=== PATIENT | male | born 1945 ===

== ENCOUNTER 2021-03-15 11:34 | Inpatient (IN) | payer OTHER, MEDICARE ==
[2021-03-15 20:47] LABS: Glucose,Whole Blood 111 mg/dL (75-99)
[2021-03-15] MEDS ORDERED: ONDANSETRON 4 MG/2 ML VIAL IVP PRN (21:48)
[2021-03-15] MEDS ORDERED: NALOXONE 0.4 MG/ML 1 ML VIAL IV PRN (21:48)
[2021-03-15] MEDS ORDERED: ACETAMINOPHEN TAB 325 MG TAB PO PRN (21:48)
--- NOTE | 2021-03-15 22:52 | P.HPIM ---
History of Present Illness H&P Date: 03/15/21 Chief Complaint: transferred for HD 76 year old male with hypertension , ESRD on HD TTS patient transferred to our facility from [facility] for HD. he went there due to increase confusion and wandering around the neighborhood looking confused and lost. his called EMS and took him to hospital hoping for improvement or placement as she does not feel she is able to take care of him anymore. and he is not safe alone around the house. patient unable to provide any meaningful history as he is pleasantly confused , telling war stories and stories about pirates. chart review showed that he has become increasingly confused over time, med list is not provided. computer showing only hydralazin. its not clear when he started HD, it seems to be recent as he is getting HD through left permacath report of acting out dreams and vivid dreams. and reliving the [place] war with history of PTSD no report about infection like symptoms , fever, chills, GI bleeding , chest pain or trouble breathing it seems that he has been leaving the house when he is alone (when is not home) and wandering around the neighborhood, confused and lost. this time requesting placement patient transferred to our facility for HD labs reviewed. CT head, no acute pathology CT abd showed moderate B/L pleural effusion , unruptured infrarenal aortic aneurysm 6 X5.6 cm COVID negative Review of Systems ROS unobtainable: due to mental status Past Medical History Past Medical History: Myocardial Infarction ([place]), Renal Disease, Skin Disorder, Thyroid Disorder Additional Past Medical History / Comment(s): Heart attack with stents, Last Myocardial Infarction Date:: unknown History of Any Multi-Drug Resistant Organisms: None Reported Past Surgical History: Heart Catheterization With Stent Date of Last Stent Placement:: unknown Smoking Status: Former smoker Past Alcohol Use History: None Reported Past Drug Use History: None Reported - Past Family History family Family Medical History: Unable to Obtain Medications and Allergies Home Medications Medication Instructions Recorded Confirmed Type Renaplex-D Tablet 1 tab PO DAILY 03/15/21 03/15/21 History hydrALAZINE HCL 25 mg PO TID 03/15/21 03/15/21 History Allergies Allergy/AdvReac Type Severity Reaction Status Date / Time lorazepam [From Ativan] AdvReac Agitation Verified 03/15/21 20:09 Physical Exam Vitals: Vital Signs Temp Pulse Resp BP Pulse Ox 03/15/21 19:52 98.4 F 70 17 190/90 97 Intake and Output 03/15/21 03/15/21 03/15/21 06:59 14:59 22:59 Other: Weight 96.026 kg Constitutional: No acute distress, conversant, pleasant, pleasantly confused Eyes: Anicteric sclerae, moist conjunctiva, Pupils equal round reactive to light ENMT: NC/AT Oropharynx clear, no erythema, or exudates Neck: Supple, FROM, no masses, or JVD No carotid bruits No thyromegaly Lungs: Clear to auscultation Clear to percussion Normal respiratory effort, no accessory muscle use Cardiovascular: Heart regular in rate and rhythm, systolic murmurs, no gallops, or rubs No peripheral edema Abdominal: Soft Nontender, no guarding, rebound or rigidity Abdomen moving with respiration Normoactive bowel sounds No hepatomegaly, No splenomegaly No palpable mass No abdominal wall hernia noted Skin: left side of chest with permacath for HD, otherwise Normal temperature, tone, texture, turgor No induration No subcutaneous nodules No rash, lesions No ulcers Extremities: No digital cyanosis No clubbing Pedal pulses intact and symmetrical Radial pulses intact and symmetrical No calf tenderness Psychiatric: Alert and oriented to nothing, he believes he is a chief of a [employer], or [employer], he thinks himself in different places Neuro he can not follow instructions for proper exam, keeps showing me how strong he is , grabbing my hands and squeezing, I could not perform proper neuro exam , but he is observed walking independantly using a cane , and able to sit and get up off the chair with minimal assistance. 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 an alternative would be high dose of melatonin up to 12 mg QHS from patient history PTSD is also suggested patient also having high blood pressure readings I recommend starting the patient on Prazosin 2 mg QHS which will help with PTSD and better blood pressure control , I would avoid taking it in the morning due to postural hypotension effect, the dose can be up titrated weekly to control his symptoms as long as his blood pressure can tolerate Fall precautions social welfare administrator evaluation for possible placement PT eval for possible placement ESRD on hemodiallysis consult nephrology renall diet follow HD schedule TTS, last session was Monday 2 days ago hypertension , uncontrolled resume hydralazin anemia of chronic disease, with macrocytosis no report of active bleeding monitor Hgb check vit b12, and folic acid hypokalemia , mild K 3.2 continue to monitor nephrology to correct during HD session in AM history reported thyroid disease, there is no levothyroxin in his meds list TSH and free T4 are within normal limits CT abd showed moderate B/L pleural effusion , unruptured infrarenal aortic aneurysm 6 X5.6 cm vascular surgery consult full code heparin sc tid for DVT PPX anticipated length of stay < 2 midnights anticipated discharge to SNF
[2021-03-15] MEDS: clonazePAM 0.5 MG TAB PO SCH (22:58)
[2021-03-15] MEDS: HEPARIN SODIUM,PORCINE/PF 5,000 UNIT/0.5 ML SYRINGE SQ SCH (22:58)
[2021-03-15] MEDS: PRAZOSIN 1 MG CAP PO SCH (22:58)
[2021-03-15] MEDS: hydrALAZINE HCL 25 MG TAB PO SCH (22:58)
[2021-03-16 06:55] LABS: Glucose,Whole Blood 88 mg/dL (75-99)
--- NOTE | 2021-03-16 07:30 | XR ---
EXAMINATION TYPE: XR chest 1V DATE OF EXAM: 03/16/2021 COMPARISON: None INDICATION: ECF placement TECHNIQUE: Single frontal view of the chest is obtained. FINDINGS: The heart size is normal. The pulmonary vasculature is slightly prominent. Mild diffuse increased lung markings are present. Correlate for volume overload. Catheter enters on the left the tip in the distal superior vena cava region. Electronic device overli es the right chest. IMPRESSION: 1. There may be some early volume overload present. Clinical correlation recommended.
[2021-03-16] MEDS: hydrALAZINE HCL 25 MG TAB PO SCH ×3 (08:44→20:03)
[2021-03-16] MEDS: HEPARIN SODIUM,PORCINE/PF 5,000 UNIT/0.5 ML SYRINGE SQ SCH ×2 (08:44→16:34)
--- NOTE | 2021-03-16 09:27 | P.PN ---
Subjective Progress Note Date: 03/16/21 HPI: 76 year old male with hypertension , ESRD on HD TTS patient transferred to our facility from [facility] for HD. he went there due to increase confusion and wandering around the neighborhood looking confused and lost. his called EMS and took him to hospital hoping for improvement or placement as she does not feel she is able to take care of him anymore. and he is not safe alone around the house. patient unable to provide any meaningful history as he is pleasantly confused , telling war stories and stories about pirates. chart review showed that he has become increasingly confused over time, med list is not provided. computer showing only hydralazin. its not clear when he started HD, it seems to be recent as he is getting HD through left permacath report of acting out dreams and vivid dreams. and reliving the [place] war with history of PTSD no report about infection like symptoms , fever, chills, GI bleeding , chest pain or trouble breathing it seems that he has been leaving the house when he is alone (when is not home) and wandering around the neighborhood, confused and lost. this time requesting placement patient transferred to our facility for HD labs reviewed. CT head, no acute pathology CT abd showed moderate B/L pleural effusion , unruptured infrarenal aortic aneurysm 6 X5.6 cm COVID negative 03/16/2021 Remains confused and poor historian. Sitter at bedside Objective - Vital Signs Vital signs: Vital Signs Temp 98.0 F 03/16/21 08:00 Pulse 99 03/16/21 08:00 Resp 18 03/16/21 08:00 BP 155/73 03/16/21 08:00 Pulse Ox 90 L 03/16/21 08:00 Intake & Output 03/15/21 03/16/21 03/16/21 18:59 06:59 18:59 Weight 96.026 kg Other: # Voids 2 - Exam Constitutional: No acute distress, conversant, confused Eyes: Anicteric sclerae, moist conjunctiva, Pupils equal round reactive to light ENMT: NC/AT Neck: Supple, FROM, no masses, or JVD No carotid bruits No thyromegaly Lungs: Clear to auscultation Clear to percussion Normal respiratory effort, no accessory muscle use Cardiovascular: Heart regular in rate and rhythm, systolic murmurs, no gallops, or rubs No peripheral edema Abdominal: Soft Nontender Skin: left side of chest with permacath for HD Extremities: No CCE Psychiatric: Alert , confused - Labs Labs: Abnormal Lab Results - Last 24 Hours (Table) 03/15/21 Range/Units 20:45 POC Glucose (mg/dL) 111 H (75-99) mg/dL Assessment and Plan Plan: progressive increase in confusion with suspected dementia with behavioral changes From reviewing medical records 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, this usually associated with synucleinopathies (neurodegenerative disease) which commonly progresses to dementia with lewy bodies, Parkinson disease, or Alzheimer over the years consider OP neurology referral for neurodegenerative disease Was started on Clonazepam at low dose of 0.5 mg QHS from patient history PTSD is also suggested Prazosin 2 mg QHS was started Fall precautions social work assistant evaluation for possible placement PT eval for possible placement ESRD on hemodialysis consult nephrology renal diet follow HD schedule TTS hypertension , uncontrolled resume hydralazin anemia of chronic disease, with macrocytosis monitor Hgb hypokalemia nephrology to correct during HD history reported thyroid disease, TSH and free T4 are within normal limits CT abd showed moderate B/L pleural effusion , unruptured infrarenal aortic aneurysm 6 X5.6 cm vascular surgery consult full code heparin sc tid for DVT PPX anticipated discharge to SNF, pending , appreciated SS/Case Management input
--- NOTE | 2021-03-16 09:35 | P.PN ---
Progress Note - Text Progress Note Date: 03/16/21 Patient was seen and examined this am chest pain improved , no sob , no dizziness trop normalized D-Dimer slightly up 0.[address] chest ro PE Midline for access Discussed with patient and RN
[2021-03-16 11:38] LABS: Glucose,Whole Blood 90 mg/dL (75-99)
[2021-03-16 11:42] LABS: Basophils # (A) 0.03 X 10*3/uL (0.00-0.10); Basophils % (A) 0.8 %; Eosinophils # (A) 0.22 X 10*3/uL (0.04-0.35); Eosinophils % (A) 6.2 %; HCT 33.9 % (39.6-50.0); HGB 10.7 g/dL (13.0-17.0); Lymphocytes # (A) 0.73 X 10*3/uL (0.90-5.00); Lymphocytes % (A) 20.5 %; MCH 32.4 pg (27.0-32.0); MCHC 31.6 g/dL (32.0-37.0); MCV 102.7 fL (80.0-97.0); Mean Platelet Volume 10.1 fL (9.5-12.2); Monocytes # (A) 0.28 X 10*3/uL (0.20-1.00); Monocytes % (A) 7.9 %; Neutrophils % (A) 64.6 %; Platelet Count 138 X 10*3/uL (140-440); RDW 13.7 % (11.5-14.5); WBC 3.56 X 10*3/uL (4.50-10.00)
[2021-03-16 11:47] LABS: Prothrombin Time 10.9 sec (9.9-11.9)
--- NOTE | 2021-03-16 13:37 | CONS ---
CONSULTATION REASON FOR CONSULTATION: End-stage renal disease. HISTORY OF PRESENT ILLNESS: Patient is a 76-year-old male with history of dementia and ESRD. He was admitted to the hospital with mental status changes, being confused and hallucinating. Patient is maintained on a Monday, , Monday schedule for dialysis. He states that he was started on dialysis about 7 to 8 months ago. The patient currently has a left IJ catheter. He dialyzes at [facility] and his bicycle taxi driver is Dr. Metcalf. No complaints of cough, abdominal pain, nausea, vomiting or diarrhea. Patient has not had a cough. PAST MEDICAL HISTORY: End-stage renal disease, hypertension, history of [place], hypothyroidism. PAST SURGICAL HISTORY: IJ catheter placement, cardiac catheterization, coronary stent placement. SOCIAL HISTORY: Patient is a former smoker. MEDICATIONS: Medications prior to admission included hydralazine, RenaPlex. ALLERGIES: ALLERGIES include ATIVAN. PHYSICAL EXAMINATION: Patient is sitting up in a bedside chair. He is very confused. At times he seems appropriate, but then becomes excessively confused. Blood pressure is 155/73, heart rate 99 per minute. He is afebrile. EXAMINATION OF THE HEART: S1 and S2. EXAMINATION OF LUNGS: Bilateral breath sounds are heard. ABDOMEN: Soft, nontender. LOWER EXTREMITIES: Examination of lower extremities shows no evidence of edema. CLASSIFICATION CLERK EXAM: Grossly intact. LABS: Labs are not available. ASSESSMENT: 1. End-stage renal disease, on hemodialysis on a Monday, , Monday schedule, per patient. 2. Mental status changes. Being considered for neurology evaluation. 3. Anemia of chronic disease. 4. Hypothyroidism. 5. Infrarenal aortic aneurysm noted on CT of the abdomen, which is currently not available in this system. Vascular Surgery has been consulted. PLAN: Check labs today. Will arrange for hemodialysis; however, it appears that patient has been refusing dialysis. We will try to convince him again, and if his labs are fairly stable and patient continues to refuse, I will hold off on treatment today and plan for a treatment tomorrow. Hopefully his mentation will be improved by then. PIERRE / CANDICEN: [id number] / MTDD
[2021-03-16 16:03] LABS: Glucose,Whole Blood 79 mg/dL (75-99)
[2021-03-16 17:25] LABS: African American GFR (CKD) 14.3 (60.0-200.0); Albumin 3.8 g/dL (3.80-4.90); Albumin/Globulin Ratio 1.31 (1.60-3.17); Anion Gap 12.2 mmol/L (4.00-12.00); BUN/Creat Ratio 11.36 Ratio (12.00-20.00); Calcium 8.9 mg/dL (8.7-10.3); Carbon Dioxide 25.8 mmol/L (21.6-31.8); Globulin 2.9 g/dL (1.6-3.3); Non-African American GFR(CKD) 12.3 (60.0-200.0); Phosphorus 4.9 mg/dL (2.4-5.1); Potassium 4.1 mmol/L (3.5-5.5); Total Bilirubin 0.4 mg/dL (0.2-1.2); Total Protein 6.7 g/dL (6.2-8.2)
--- NOTE | 2021-03-16 18:15 | P.GSCN ---
History of Present Illness Consult date: 03/16/21 Reason for Consult: AAA History of present illness: 76 year old male with hypertension, ESRD on HD presented to the hospital as a transfer from [facility] due to increase confusion. Per family patient has had altered mental status and EMS was contacted and the patient was taken to the hospital. Patients doesn't feel like she can take care of him anymore and states he is not safe to be be left alone. Upon evaluation at [facility] he und erwent CT scans of the brain and abdomen which demonstrated a non-ruptured AAA measuring 6x5.6cm. He denies any abdominal pain or back pain. He is confused per nursing and has been telling stories and hallucinating all day. He does get HD via a left permacath which has been functioning well. He denies any fevers, chills, chest pain or shortness of breath. Review of Systems ROS unobtainable: due to mental status Past Medical History Past Medical History: Myocardial Infarction ([place]), Renal Disease, Skin Disorder, Thyroid Disorder Additional Past Medical History / Comment(s): Heart attack with stents, Last Myocardial Infarction Date:: unknown History of Any Multi-Drug Resistant Organisms: None Reported Past Surgical History: Heart Catheterization With Stent Date of Last Stent Placement:: unknown Smoking Status: Former smoker Past Alcohol Use History: None Reported Past Drug Use History: None Reported - Past Family History family Family Medical History: Unable to Obtain Medications and Allergies Home Medications Medication Instructions Recorded Confirmed Type Renaplex-D Tablet 1 tab PO DAILY 03/15/21 03/15/21 History hydrALAZINE HCL 25 mg PO TID 03/15/21 03/15/21 History Allergies Allergy/AdvReac Type Severity Reaction Status Date / Time lorazepam [From Ativan] AdvReac Agitation Verified 03/15/21 20:09 Surgical - Exam Vital Signs Temp Pulse Resp BP Pulse Ox 98.4 F 70 17 190/90 97 03/15/21 19:52 03/15/21 19:52 03/15/21 19:52 03/15/21 19:52 03/15/21 19:52 No pulsatile mass in abdomen. Palpable femoral, DP pulses bilaterally. Good capillary refill. - General well developed, no distress, no pain - Eyes PERRL, normal ocular movement - ENT normal pinna - Neck no masses - Respiratory normal expansion, normal respiratory effort - Cardiovascular Rhythm: regular - Abdomen Abdomen: soft, non tender, no guarding, no rigid - Integumentary no rash, no growths - Neurologic normal sensation, confused - Psychiatric no oriented to time, oriented to person, no oriented to place, speech is normal Results - Labs 03/16/21 07:20 03/16/21 07:20 Abnormal Lab Results - Last 24 Hours (Table) 03/15/21 03/16/21 03/16/21 Range/Units 20:45 07:20 07:20 WBC 3.56 L (4.50-10.00) X 10*3/uL RBC 3.30 L (4.40-5.60) X 10*6/uL Hgb 10.7 L (13.0-17.0) g/dL Hct 33.9 L (39.6-50.0) % MCV 102.7 H (80.0-97.0) fL MCH 32.4 H (27.0-32.0) pg MCHC 31.6 L (32.0-37.0) g/dL Plt Count 138 L (140-440) X 10*3/uL Lymphocytes # 0.73 L (0.90-5.00) X 10*3/uL Anion Gap 12.20 H (4.00-12.00) mmol/L BUN 50.0 H (9.0-27.0) mg/dL Creatinine 4.4 H (0.6-1.5) mg/dL Est GFR (CKD-EPI)AfAm 14.3 L (60.0-200.0) Est GFR (CKD-EPI)NonAf 12.3 L (60.0-200.0) BUN/Creatinine Ratio 11.36 L (12.00-20.00) Ratio POC Glucose (mg/dL) 111 H (75-99) mg/dL Albumin/Globulin Ratio 1.31 L (1.60-3.17) g/dL Diabetes panel 03/16/21 Range/Units 07:20 Sodium 140 (135-145) mmol/L Potassium 4.1 (3.5-5.5) mmol/L Chloride 102 (96-109) mmol/L Carbon Dioxide 25.8 (21.6-31.8) mmol/L BUN 50.0 H (9.0-27.0) mg/dL Creatinine 4.4 H (0.6-1.5) mg/dL Glucose 85 (70-110) mg/dL Calcium 8.9 (8.7-10.3) mg/dL AST 31 (14-35) U/L ALT 14 (10-49) U/L Alkaline Phosphatase 79 (41-126) U/L Total Protein 6.7 (6.2-8.2) g/dL Albumin 3.80 (3.80-4.90) g/dL Calcium panel 03/16/21 Range/Units 07:20 Calcium 8.9 (8.7-10.3) mg/dL Phosphorus 4.9 (2.4-5.1) mg/dL Albumin 3.80 (3.80-4.90) g/dL Pituitary panel 03/16/21 Range/Units 07:20 Sodium 140 (135-145) mmol/L Potassium 4.1 (3.5-5.5) mmol/L Chloride 102 (96-109) mmol/L Carbon Dioxide 25.8 (21.6-31.8) mmol/L BUN 50.0 H (9.0-27.0) mg/dL Creatinine 4.4 H (0.6-1.5) mg/dL Glucose 85 (70-110) mg/dL Calcium 8.9 (8.7-10.3) mg/dL Adrenal panel 03/16/21 Range/Units 07:20 Sodium 140 (135-145) mmol/L Potassium 4.1 (3.5-5.5) mmol/L Chloride 102 (96-109) mmol/L Carbon Dioxide 25.8 (21.6-31.8) mmol/L BUN 50.0 H (9.0-27.0) mg/dL Creatinine 4.4 H (0.6-1.5) mg/dL Glucose 85 (70-110) mg/dL Calcium 8.9 (8.7-10.3) mg/dL Total Bilirubin 0.4 (0.2-1.2) mg/dL AST 31 (14-35) U/L ALT 14 (10-49) U/L Alkaline Phosphatase 79 (41-126) U/L Total Protein 6.7 (6.2-8.2) g/dL Albumin 3.80 (3.80-4.90) g/dL - Imaging CT scan - abdomen: image reviewed Assessment and Plan Assessment: 1. Infrarenal AAA 2. ESRD on HD 3. Altered mental status Plan: Reviewed CT abdomen and pelvis. This is a non contrasted study and therefore will need to be repeated with contrast to truly evaluate the AAA. At this time his mental status is a priority and no surgical intervention is required. He would need intervention due to increase risk of rupture if family agrees. Recommend hypertension control and medical management for altered mental status. Will follow.
[2021-03-16] MEDS: PRAZOSIN 1 MG CAP PO SCH (20:03)
[2021-03-16] MEDS: clonazePAM 0.5 MG TAB PO SCH (20:03)
[2021-03-16 20:42] LABS: Hepatitis A Antibody IgM Non-Reactive (Non-Reactive); Hepatitis B Core IgM Non-Reactive (Non-Reactive); Hepatitis B Surface Antigen Non-Reactive (Non-Reactive); Hepatitis C IgG Antibody Non-Reactive (Non-Reactive)
[2021-03-16 21:00] LABS: Glucose,Whole Blood 85 mg/dL (75-99)
[2021-03-17] MEDS: HEPARIN SODIUM,PORCINE/PF 5,000 UNIT/0.5 ML SYRINGE SQ SCH ×3 (01:13→15:10)
[2021-03-17 06:48] LABS: Glucose,Whole Blood 70 mg/dL (75-99)
[2021-03-17] MEDS: hydrALAZINE HCL 25 MG TAB PO SCH ×3 (08:17→20:53)
[2021-03-17 12:02] LABS: Glucose,Whole Blood 74 mg/dL (75-99)
--- NOTE | 2021-03-17 12:42 | P.PN ---
Subjective Progress Note Date: 03/17/21 Pt is quite confused, is hyperverbal and tells strange stories. Objective - Vital Signs Vital signs: Vital Signs Temp 97.6 F 03/17/21 07:50 Pulse 86 03/17/21 07:50 Resp 18 03/17/21 08:00 BP 173/81 03/17/21 07:50 Pulse Ox 93 L 03/17/21 09:17 Intake & Output 03/16/21 03/17/21 03/17/21 18:59 06:59 18:59 Intake Total 480 480 Output Total 1000 Balance -520 480 Weight 89 kg Intake: Oral 480 480 Output: Hemodialysis 1000 Other: # Voids 2 - Exam Gen: awake, confused HEENT: normocephalic, atraumatic, good hearing acuity, moist mucous membranes Resp: good air exchange, breathing comfortably with no accessory muscle use CVS: good distal perfusion x 4, GI: soft, NTTP, ND : no SPT, no CVAT, suarez catheter not present MSK: no pitting edema, no clubbing Neuro: non-focal, moving all extremities - Labs CBC & Chem 7: 03/16/21 07:20 03/16/21 07:20 Labs: Abnormal Lab Results - Last 24 Hours (Table) 03/16/21 03/17/21 03/17/21 Range/Units 07:20 06:47 12:01 Anion Gap 12.20 H (4.00-12.00) mmol/L BUN 50.0 H (9.0-27.0) mg/dL Creatinine 4.4 H (0.6-1.5) mg/dL Est GFR (CKD-EPI)AfAm 14.3 L (60.0-200.0) Est GFR (CKD-EPI)NonAf 12.3 L (60.0-200.0) BUN/Creatinine Ratio 11.36 L (12.00-20.00) Ratio POC Glucose (mg/dL) 70 L 74 L (75-99) mg/dL Albumin/Globulin Ratio 1.31 L (1.60-3.17) g/dL Assessment and Plan Assessment: Progressive increase in confusion with suspected dementia with behavioral changes From reviewing medical records 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, this usually associated with synucleinopathies (neurodegenerative disease) which commonly progresses to dementia with lewy bodies, Parkinson disease, or Alzheimer over the years -consider OP neurology referral for neurodegenerative disease -Trazodone 50mg qHS -Fall precautions -social worker delinquency prevention evaluation for possible placement -PT eval for possible placement History of PTSD Prazosin 2 mg QHS was started ESRD on hemodialysis consult nephrology renal diet follow HD schedule TTS hypertension , uncontrolled resume hydralazine Anemia of chronic disease, with macrocytosis monitor Hgb Infrarenal aortic aneurysm 6 X5.6 cm vascular surgery consult full code heparin sc tid for DVT PPX anticipated discharge to SNF, pending , appreciated SS/Case Management input
--- NOTE | 2021-03-17 14:47 | P.PN ---
Subjective Progress Note Date: 03/17/21 Principal diagnosis: Abdominal aortic aneurysm Patient was seen and examined lying in bed. He is pleasantly confused and hallucinating that there are other people in the room. He is alert and oriented 1. He is had no acute changes through the night. He denies any abdominal pain or back pain. He has been afebrile. Objective - Vital Signs Vital signs: Vital Signs Temp 97.6 F 03/17/21 07:50 Pulse 86 03/17/21 07:50 Resp 18 03/17/21 08:00 BP 173/81 03/17/21 07:50 Pulse Ox 93 L 03/17/21 09:17 Intake & Output 03/16/21 03/17/21 03/17/21 18:59 06:59 18:59 Intake Total 480 480 Output Total 1000 Balance -520 480 Weight 89 kg Intake: Oral 480 480 Output: Hemodialysis 1000 Other: # Voids 2 - Exam General appearance: The patient is alert, oriented to self, appears in no acute distress. HET: Head is normocephalic and atraumatic. Neck: Supple without lymphadenopathy. Trachea midline. Heart: S1 S2. Regular rate and rhythm. Lungs: Clear to auscultation.. Abdomen: Soft, nontender, nondistended. Extremities: Normal skin color and turgor. No cyanosis, rash, ulceration, clubbing, or edema. . Neurological: Alert and oriented 1. Patient hallucinating and stating other people are in the room. - Labs CBC & Chem 7: 03/16/21 07:20 03/16/21 07:20 Labs: Abnormal Lab Results - Last 24 Hours (Table) 03/16/21 03/16/21 03/17/21 Range/Units 07:20 07:20 06:47 WBC 3.56 L (4.50-10.00) X 10*3/uL RBC 3.30 L (4.40-5.60) X 10*6/uL Hgb 10.7 L (13.0-17.0) g/dL Hct 33.9 L (39.6-50.0) % MCV 102.7 H (80.0-97.0) fL MCH 32.4 H (27.0-32.0) pg MCHC 31.6 L (32.0-37.0) g/dL Plt Count 138 L (140-440) X 10*3/uL Lymphocytes # 0.73 L (0.90-5.00) X 10*3/uL Anion Gap 12.20 H (4.00-12.00) mmol/L BUN 50.0 H (9.0-27.0) mg/dL Creatinine 4.4 H (0.6-1.5) mg/dL Est GFR (CKD-EPI)AfAm 14.3 L (60.0-200.0) Est GFR (CKD-EPI)NonAf 12.3 L (60.0-200.0) BUN/Creatinine Ratio 11.36 L (12.00-20.00) Ratio POC Glucose (mg/dL) 70 L (75-99) mg/dL Albumin/Globulin Ratio 1.31 L (1.60-3.17) g/dL Assessment and Plan Assessment: 1. Infrarenal abdominal aortic aneurysm 2. End-stage renal disease on hemodialysis 3. Altered mental status Plan: 1. Continue with hypertension control 2. Medical management for altered mental status 3. Recommend CT abdomen and pelvis with contrast for further evaluation of abdominal aortic aneurysm once patient's altered mental status improved 4. Patient is candidate for intervention due to increased risk of rupture of abdominal aortic aneurysm if family chooses 5. We will continue to follow The impression and plan of care has been dictated as directed. Dr. George I performed a history and examination of this patient, discussed the same with the dictator. I agree with the dictator's note ,documented as a scribe. Any additional findings or plans will be noted.
[2021-03-17 17:46] LABS: Glucose,Whole Blood 73 mg/dL (75-99)
--- NOTE | 2021-03-17 20:01 | PN ---
PROGRESS NOTE The patient is seen for followup for end-stage renal disease. He is maintained on a Monday, , Monday schedule. The patient tolerated his treatment fairly well yesterday. He will be dialyzed again tomorrow. He remains confused. PHYSICAL EXAMINATION: On examination today, blood pressure this morning was 173/81, heart rate 86 per minute. He is afebrile. Examination of the heart S1, S2. Examination of the lungs, decreased breath sounds at the bases. Abdomen is soft, nontender. Examination lower extremities shows no evidence of edema. SUPERVISOR STAVE CUTTING exam grossly intact. LABS: From yesterday show hemoglobin of 10.7, sodium 140, potassium 4.1. ASSESSMENT: 1. End-stage renal disease, on hemodialysis on a Monday, , Monday schedule via left IJ PermCath. 2. Aortic aneurysm, being followed by vascular surgery. 3. Hypertension. Blood pressure is uncontrolled. Medications are being adjusted. The patient is currently on Prazosin and hydralazine. The dose of hydralazine can be increased further. Consider adding beta blockers as well as hydralazine and prazosin vasodilators. MMODL / IJN: [id number] /
[2021-03-17 20:27] LABS: Glucose,Whole Blood 105 mg/dL (75-99)
[2021-03-17] MEDS: PRAZOSIN 1 MG CAP PO SCH (20:54)
[2021-03-17] MEDS ORDERED: traZODone HCL 50 MG TAB PO SCH (21:00)
[2021-03-18] MEDS: HEPARIN SODIUM,PORCINE/PF 5,000 UNIT/0.5 ML SYRINGE SQ SCH ×3 (00:52→17:03)
[2021-03-18 06:52] LABS: Glucose,Whole Blood 75 mg/dL (75-99)
[2021-03-18] MEDS: lisinopriL 10 MG TAB PO SCH (08:48)
[2021-03-18] MEDS: hydrALAZINE HCL 25 MG TAB PO SCH ×3 (08:48→21:47)
[2021-03-18] MEDS ORDERED: ALTEPLASE 2 MG VIAL (CATHFLO) MISCELLANE ONE ×2 (09:53→10:00)
[2021-03-18 11:04] LABS: Glucose,Whole Blood 107 mg/dL (75-99)
--- NOTE | 2021-03-18 12:07 | P.PN ---
Subjective Progress Note Date: 03/18/21 Principal diagnosis: Abdominal aortic aneurysm Patient was seen and examined lying in bed. He is pleasantly confused and having strange conversations. He is alert and oriented 1. Acute changes through the night. Primary medicine team believes altered mental status related to neurological degenerative disease such as dementia. Patient denies any abdominal pain, nausea, or vomiting. Patient also denies any back pain or pain radiating to his back. He has been afebrile. Apparently the plan is for her son to have patient move in with him [id number]. Primary medicine will speak with the patient's son regarding abdominal aortic aneurysm and recommendation for surgical intervention. Objective - Vital Signs Vital signs: Vital Signs Temp 97.9 F 03/18/21 07:11 Pulse 89 03/18/21 07:11 Resp 18 03/18/21 07:11 BP 152/75 03/18/21 07:11 Pulse Ox 93 L 03/18/21 07:11 Intake & Output 03/17/21 03/18/21 03/18/21 18:59 06:59 18:59 Intake Total 240 640 Balance 240 640 Weight 89.5 kg Intake: Oral 240 640 Other: # Voids 2 1 1 - Exam General appearance: The patient is alert, oriented to self, appears in no acute distress. HET: Head is normocephalic and atraumatic. Neck: Supple without lymphadenopathy. Trachea midline. Heart: S1 S2. Regular rate and rhythm. Lungs: Clear to auscultation.. Abdomen: Soft, nontender, nondistended. Extremities: Normal skin color and turgor. No cyanosis, rash, ulceration, clubbing, or edema. . Neurological: Alert and oriented 1. Patient hallucinating and stating other people are in the room. - Labs CBC & Chem 7: 03/16/21 07:20 03/16/21 07:20 Labs: Abnormal Lab Results - Last 24 Hours (Table) 03/17/21 03/17/21 03/17/21 Range/Units 12:01 17:26 20:26 POC Glucose (mg/dL) 74 L 73 L 105 H (75-99) mg/dL Assessment and Plan Assessment: 1. Infrarenal abdominal aortic aneurysm 2. End-stage renal disease on hemodialysis 3. Altered mental status Plan: 1. Continue with hypertension control 2. Medical management for altered mental status 3. Recommend CT abdomen and pelvis with contrast for further evaluation of a bdominal aortic aneurysm once patient's altered mental status improved 4. Patient is candidate for intervention due to increased risk of rupture of abdominal aortic aneurysm if family chooses. This was discussed with the primary care medicine team who will discuss with son as patient is likely going to be discharged understands care and moving out of state. 5. We will continue to follow The impression and plan of care has been dictated as directed. Dr. Dickerson I performed a history and examination of this patient, discussed the same with the dictator. I agree with the dictator's note ,documented as a scribe. Any additional findings or plans will be noted.
[2021-03-18] MEDS ORDERED: QUEtiapine 25 MG TAB PO STA (12:54)
[2021-03-18] MEDS ORDERED: traZODone HCL 50 MG TAB PO PRN (12:55)
--- NOTE | 2021-03-18 13:06 | P.CN ---
Psychiatric Consult - . Consult date: 03/18/21 Consult:: 03/18/21 12:25 IDENTIFYING DATA: This patient is a 76-year-old male who is currently and lives his in a house and has 2 kids. REASON FOR REFERRAL: Psychiatry was consulted for "new confusion" HISTORY OF PRESENT ILLNESS: The patient presented to the hospital on 03/15 as a transfer from [facility] for hemodialysis and new onset confusion. Patient apparently was found wandering around his neighborhood and confused. His called EMS to bring him into the hospital. Patient likely has questionable dementia and possible REM sleep disorder and was started on clonazepam. Patient's nurse claims that patient has been confused at times and claimed to have been "seeing things" however has not been aggressive in taking his medications. Patient was seen laying down in his bed and appeared to be awake and agreeable to speak to senior grant writer. Patient was fairly talkative was rambling tangential and had loose associations at times. He spoke about talking to "some high people". He believed that [facility] in [place] and knew his correct phone name. When asked about the date patient had to look up at the board to give the correct date. He states that his sleep has been poor and his appetite has been poor. Patient's memory was poor and had poor attention span during the interview. When asked about visual hallucinations, he gave an unclear answer and was fairly tangential. At this time patient denies any suicidal or homical ideations, intent or plan. Patient denies any auditory. Patients admits to using no recreational drugs Patient was a fairly poor historian and could not give good information about his past psychiatric history and social history or family history. PAST PSYCHIATRIC HISTORY: Patient is currently on trazodone 50 mg at nighttime and prazosin 2 mg daily at bedtime. Patient has a history of PTSD. Patient denies any psychiatric outpatient follow-up. Patient denies any history of suicide attempts in the past. Past Medical History: Myocardial Infarction ([place]), Renal Disease, Skin Disorder, Thyroid Disorder Additional Past Medical History / Comment(s): Heart attack with stents, ALLERGIES: as per EMR. CHEMICAL DEPENDENCY HISTORY: as per HPI. FAMILY PSYCHIATRIC/SUBSTANCE USE HISTORY: Unable to answer SOCIAL HISTORY: Patient was born and raised in [place] and then moved to [place] is a young age. 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 He is currently and lives with his in a house and has 2 kids. MENTAL STATUS EXAM: General Appearance: Patient appears to be tall, stated age is alert, pleasant. Patient appears to have fair hygiene and grooming wearing hospital gown with fair eye contact. Behavior: Patient is calmly lying in bed without any agitated behavior. Talkative and intrusive at times Speech: Patient is fairly talkative, rambles. Mood/Affect: Patient reports their mood is "ok", affect is congruent and congruent Suicidality/Homicidality: Patient denies having any suicidal or homicidal id eation intent or plan. Perceptions: Unsure if patient is experiencing visual hallucinations. Denying any auditory hallucinations. Though content/process: Loose associations, rambling, tangential. Not endorsing any paranoia. Memory and concentration: AOX1, believes that he is in a [facility] facility in [place] and does not know today's date. Poor attention span, does not know who the current president is. Poor recall 2 out of 3 after 5 minutes. Judgment and insight: poor IMPRESSIONS: Delirium, unknown etiology Dementia without behavioral disturbance hx of PTSD PLAN: -At this time patient DOES NOT meet criteria for inpatient psychiatric admission. -Patient DOES NOT have decision making capacity at this time and is unable to reason through and communicate/appreciate the risks, benefits and alternatives to treatment. -Delirium precautions recommended with patient including - avoiding use of narcotics and DATABASE COORDINATOR sedatives, limit anticholinergic medications when possible, frequent re-orientation, minimize use of restraints, open window shades during the day and close them at night -Would recommend the following medication changes/additions: Give 1 dose of Seroquel now 25 mg. 25 mg daily at bedtime for insomnia/psychosis. 25 mg daily when necessary for acute agitation or psychosis. Trazodone to 50 mg daily at bedtime when necessary for insomnia. continue with prazosin 2 mh qhs for nightmares. -protective services social worker to provide patient with outpatient mental health/psychiatry resources for appropriate follow up upon discharge -Communicated plan to patient's nurse -Will continue to follow along -Please contact with any questions. 03/18/21 12:56
--- NOTE | 2021-03-18 13:15 | PN ---
PROGRESS NOTE Patient is seen for followup for end-stage renal disease. Patient is seen on hemodialysis. He is tolerating his treatment well. He remains confused. PHYSICAL EXAMINATION: Blood pressure 152/75, heart rate 83 per minute, he is afebrile. Examination of the heart S1, S2. Examination of the lungs, bilateral breath sounds are heard. Abdomen is soft, nontender. Examination of lower extremities shows no evidence of edema. CARE AID exam shows patient moving all four extremities. He seems to initially carry on a normal conversation and then he goes off in different tangents. LAB: Show on March 16 sodium 140, potassium 4.1, hemoglobin 10.7 g/dL. ASSESSMENT: 1. End-stage renal disease, on hemodialysis on a Monday, , Monday schedule via IJ PermCath. The patient's catheter is not working well today. He will get Cathflo placed post treatment today in the catheter. 2. Mental status changes with underlying dementia. 3. Infrarenal aortic aneurysm. 4. Chronic kidney disease mineral bone disorder. 5. Hypertension with chronic kidney disease stage 5. Blood pressure slightly better controlled now. PLAN: Continue hemodialysis on a Monday, , Monday schedule. The patient was started on lisinopril for uncontrolled hypertension which we can continue for now. MMODL / IJN: [id number] /
--- NOTE | 2021-03-18 13:16 | P.PN ---
Subjective Progress Note Date: 03/18/21 Pt still confused. Rec'd dialysis during my interview. Mood improved. Objective - Vital Signs Vital signs: Vital Signs Temp 97.9 F 03/18/21 07:11 Pulse 89 03/18/21 07:11 Resp 18 03/18/21 07:11 BP 152/75 03/18/21 07:11 Pulse Ox 93 L 03/18/21 07:11 Intake & Output 03/17/21 03/18/21 03/18/21 18:59 06:59 18:59 Intake Total 240 640 Balance 240 640 Weight 89.5 kg Intake: Oral 240 640 Other: # Voids 2 1 1 - Exam Gen: awake, confused HEENT: normocephalic, atraumatic, good hearing acuity, moist mucous membranes Resp: good air exchange, breathing comfortably with no accessory muscle use CVS: good distal perfusion x 4, GI: soft, NTTP, ND : no SPT, no CVAT, suarez catheter not present MSK: no pitting edema, no clubbing Neuro: non-focal, moving all extremities - Labs CBC & Chem 7: 03/16/21 07:20 03/16/21 07:20 Labs: Abnormal Lab Results - Last 24 Hours (Table) 03/17/21 03/17/21 03/18/21 Range/Units 17:26 20:26 11:02 POC Glucose (mg/dL) 73 L 105 H 107 H (75-99) mg/dL Assessment and Plan Assessment: Progressive increase in confusion with suspected dementia with behavioral changes From reviewing medical records 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, this usually associated with synucleinopathies (neurodegenerative disease) which commonly progresses to dementia with lewy bodies, Parkinson disease, or Alzheimer over the years -consider OP neurology referral for neurodegenerative disease -Trazodone 50mg qHS -Fall precautions -rn social work evaluation for possible placement -PT eval for possible placement History of PTSD Prazosin 2 mg QHS was started ESRD on hemodialysis consult nephrology renal diet follow HD schedule TTS hypertension , uncontrolled resume hydralazine Anemia of chronic disease, with macrocytosis monitor Hgb Infrarenal aortic aneurysm 6 X5.6 cm vascular surgery consult full code heparin sc tid for DVT PPX anticipated discharge to SNF, pending , appreciated SS/Case Management input
[2021-03-18 16:21] LABS: Basophils % (A) 1 %; Eosinophils # (A) 0.3 k/uL (0-0.7); Eosinophils % (A) 6 %; HCT 39.3 % (39.0-53.0); HGB 12.5 gm/dL (13.0-17.5); Lymphocytes % (A) 23 %; MCH 33.2 pg (25.0-35.0); MCHC 31.9 g/dL (31.0-37.0); Macrocytosis Slight; Mean Platelet Volume 7.6; Monocytes # (A) 0.3 k/uL (0-1.0); Monocytes % (A) 8 %; Neutrophils # (A) 2.7 k/uL (1.3-7.7); Neutrophils % (A) 60 %; Platelet Count 108 k/uL (150-450); RBC 3.78 m/uL (4.30-5.90); RDW 13.3 % (11.5-15.5); WBC 4.5 k/uL (3.8-10.6)
[2021-03-18 16:37] LABS: African American GFR (CKD) 20 (>60 ml/min/1.73 sqM); Anion Gap 10 mmol/L; Blood Urea Nitrogen 32 mg/dL (9-20); Calcium 9.2 mg/dL (8.4-10.2); Carbon Dioxide 23 mmol/L (22-30); Chloride 104 mmol/L (98-107); Glucose 85 mg/dL (74-99); Magnesium 2.2 mg/dL (1.6-2.3); Non-African American GFR(CKD) 17 (>60 ml/min/1.73 sqM); Potassium 4.9 mmol/L (3.5-5.1); Sodium 137 mmol/L (137-145)
[2021-03-18 16:46] LABS: Glucose,Whole Blood 69 mg/dL (75-99)
[2021-03-18 17:03] LABS: Glucose,Whole Blood 75 mg/dL (75-99)
[2021-03-18 20:03] LABS: Glucose,Whole Blood 108 mg/dL (75-99)
[2021-03-18] MEDS: PRAZOSIN 1 MG CAP PO SCH (21:48)
[2021-03-18] MEDS: QUEtiapine 25 MG TAB PO SCH (21:48)
[2021-03-19] MEDS: HEPARIN SODIUM,PORCINE/PF 5,000 UNIT/0.5 ML SYRINGE SQ SCH ×4 (00:44→23:18)
[2021-03-19] MEDS: hydrALAZINE HCL 25 MG TAB PO SCH ×3 (08:53→21:03)
[2021-03-19] MEDS: lisinopriL 10 MG TAB PO SCH (08:53)
[2021-03-19] MEDS ORDERED: QUEtiapine 25 MG TAB PO PRN (09:00)
--- NOTE | 2021-03-19 10:53 | P.PN ---
Subjective Progress Note Date: 03/19/21 Principal diagnosis: Abdominal aortic aneurysm Patient was seen and examined lying in bed. He is pleasantly confused and having strange conversations and will burst out crying. He is alert and oriented 1. No acute changes through the night. Primary medicine team believes altered mental status related to neurological degenerative disease such as dementia. Patient denies any abdominal pain, nausea, or vomiting. Patient also denies any back pain or pain radiating to his back. He has been afebrile. Apparently the plan is for her son to have patient move in with him [id number] in [place]. Discuss with primary medicine, they state that P discussed with the patient's son regarding recommendation for abdominal aortic aneurysm repair and they are declining any intervention at this time. They're arranging for patient to be discharged. Objective - Vital Signs Vital signs: Vital Signs Temp 97.9 F 03/19/21 07:28 Pulse 89 03/19/21 07:28 Resp 18 03/19/21 07:28 BP 162/84 03/19/21 07:28 Pulse Ox 95 03/19/21 07:28 Intake & Output 03/18/21 03/19/21 03/19/21 18:59 06:59 18:59 Intake Total 325 Output Total 1999 Balance -1675 Intake: Oral 325 Output: Hemodialysis 1999 Other: Voiding Method Toilet # Voids 1 1 - Exam General appearance: The patient is alert, oriented to self, appears in no acute distress. HET: Head is normocephalic and atraumatic. Neck: Supple without lymphadenopathy. Trachea midline. Heart: S1 S2. Regular rate and rhythm. Lungs: Clear to auscultation.. Abdomen: Soft, nontender, nondistended. Extremities: Normal skin color and turgor. No cyanosis, rash, ulceration, clubbing, or edema. . Neurological: Alert and oriented 1. Patient hallucinating and stating other people are in the room. - Labs CBC & Chem 7: 03/18/21 16:09 03/18/21 16:09 Labs: Abnormal Lab Results - Last 24 Hours (Table) 03/18/21 03/18/21 03/18/21 Range/Units 11:02 16:09 16:09 RBC 3.78 L (4.30-5.90) m/uL Hgb 12.5 L (13.0-17.5) gm/dL MCV 104.0 H (80.0-100.0) fL Plt Count 108 L (150-450) k/uL BUN 32 H (9-20) mg/dL Creatinine 3.36 H (0.66-1.25) mg/dL POC Glucose (mg/dL) 107 H (75-99) mg/dL 03/18/21 03/18/21 Range/Units 16:45 20:01 RBC (4.30-5.90) m/uL Hgb (13.0-17.5) gm/dL MCV (80.0-100.0) fL Plt Count (150-450) k/uL BUN (9-20) mg/dL Creatinine (0.66-1.25) mg/dL POC Glucose (mg/dL) 69 L 108 H (75-99) mg/dL Assessment and Plan Assessment: 1. Infrarenal abdominal aortic aneurysm 2. End-stage renal disease on hemodialysis 3. Altered mental status Plan: 1. Continue with hypertension control 2. Medical management for altered mental status 3. Recommend CT abdomen and pelvis with contrast for further evaluation of abdominal aortic aneurysm once patient's altered mental status improved, this can be done outpatient in [place] 4. Patient is candidate for intervention due to increased risk of rupture of abdominal aortic aneurysm if family chooses. This was discussed with the primary care medicine team who discussed with patient's son and they are declining any intervention. 5. We will sign off at this time. He may follow up with vascular surgery if they decide they want surgical intervention The impression and plan of care has been dictated as directed. Dr. Kevin I performed a history and examination of this patient, discussed the same with the dictator. I agree with the dictator's note ,documented as a scribe. Any additional findings or plans will be noted.
--- NOTE | 2021-03-19 12:39 | P.PN ---
Subjective Progress Note Date: 03/19/21 No acute changes. Pts family working with SW to plan safe discharge. Objective - Vital Signs Vital signs: Vital Signs Temp 97.9 F 03/19/21 07:28 Pulse 89 03/19/21 07:28 Resp 18 03/19/21 07:28 BP 162/84 03/19/21 07:28 Pulse Ox 95 03/19/21 07:28 Intake & Output 03/18/21 03/19/21 03/19/21 18:59 06:59 18:59 Intake Total 325 Output Total 1999 Balance -1675 Intake: Oral 325 Output: Hemodialysis 1999 Other: Voiding Method Toilet # Voids 1 1 - Exam Gen: awake, confused HEENT: normocephalic, atraumatic, good hearing acuity, moist mucous membranes Resp: good air exchange, breathing comfortably with no accessory muscle use CVS: good distal perfusion x 4, GI: soft, NTTP, ND : no SPT, no CVAT, suarez catheter not present MSK: no pitting edema, no clubbing Neuro: non-focal, moving all extremities - Labs CBC & Chem 7: 03/18/21 16:09 03/18/21 16:09 Labs: Abnormal Lab Results - Last 24 Hours (Table) 03/18/21 03/18/21 03/18/21 Range/Units 16:09 16:09 16:45 RBC 3.78 L (4.30-5.90) m/uL Hgb 12.5 L (13.0-17.5) gm/dL MCV 104.0 H (80.0-100.0) fL Plt Count 108 L (150-450) k/uL BUN 32 H (9-20) mg/dL Creatinine 3.36 H (0.66-1.25) mg/dL POC Glucose (mg/dL) 69 L (75-99) mg/dL 03/18/21 Range/Units 20:01 RBC (4.30-5.90) m/uL Hgb (13.0-17.5) gm/dL MCV (80.0-100.0) fL Plt Count (150-450) k/uL BUN (9-20) mg/dL Creatinine (0.66-1.25) mg/dL POC Glucose (mg/dL) 108 H (75-99) mg/dL Assessment and Plan Assessment: Progressive increase in confusion with suspected dementia with behavioral changes From reviewing medical records 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, this usually associated with synucleinopathies (neurodegenerative disease) which commonly progresses to d ementia with lewy bodies, Parkinson disease, or Alzheimer over the years -consider OP neurology referral for neurodegenerative disease -Trazodone 50mg qHS -Fall precautions -social worker aide evaluation for possible placement -PT eval for possible placement History of PTSD Prazosin 2 mg QHS was started ESRD on hemodialysis consult nephrology renal diet follow HD schedule TTS hypertension , uncontrolled resume hydralazine Anemia of chronic disease, with macrocytosis monitor Hgb Infrarenal aortic aneurysm 6 X5.6 cm vascular surgery consult full code heparin sc tid for DVT PPX anticipated discharge to Home; SS/Case Management input
--- NOTE | 2021-03-19 17:49 | PN ---
PROGRESS NOTE Patient is seen for followup for end-stage renal disease. The patient has underlying delirium and has been confused. He is maintained on a Monday, , Monday schedule for dialysis and patient will be dialyzed tomorrow. He has been evaluated by psych and his medications have been adjusted. PHYSICAL EXAMINATION: On examination today, blood pressure 154/88, heart rate 87 per minute. He is afebrile. Examination of the heart S1, S2. Examination of the lungs, bilateral breath sounds are heard. Abdomen is soft, nontender. Examination of lower extremities shows no evidence of edema. JACQUARD LOOM CARPET WEAVER exam is grossly intact. LAB: Show hemoglobin 12.5, sodium 137, potassium 4.9 on 03/18/2021. ASSESSMENT: 1. End-stage renal disease, on hemodialysis on a Monday, , Monday schedule. The patient will be dialyzed in a.m. 2. Mental status changes, status post evaluation by psych showing signs of delirium. Medications have been adjusted. CT scan of the brain has been negative. 3. CKD mineral bone disorder. 4. Hypertension. PLAN: Hemodialysis in a.m. Continue medications as per psych recommendation. The patient's phosphorus was not elevated. We will continue current diet without binders. MMODL / IJN: [id number] /
[2021-03-19 20:09] LABS: Glucose,Whole Blood 86 mg/dL (75-99)
[2021-03-19] MEDS: PRAZOSIN 1 MG CAP PO SCH (21:03)
[2021-03-19] MEDS: QUEtiapine 25 MG TAB PO SCH (21:04)
[2021-03-20] MEDS: hydrALAZINE HCL 25 MG TAB PO SCH ×3 (07:48→20:26)
[2021-03-20] MEDS: HEPARIN SODIUM,PORCINE/PF 5,000 UNIT/0.5 ML SYRINGE SQ SCH ×2 (07:48→16:17)
[2021-03-20] MEDS: lisinopriL 10 MG TAB PO SCH (07:49)
--- NOTE | 2021-03-20 10:17 | P.PN ---
Subjective Progress Note Date: 03/20/21 Principal diagnosis: this 76-year-old male with ESRD on dialysis Monday. He was admitted with confusion and delirium. Currently on dialysis this morning on the time of this exam and continues to be somewhat confused.he has been worked up for his confusion computed tomography scan is normal labs are satisfactory. According to nursing staff he is eating fairly well. No nausea vomiting. He is afebrile while signs are stable Objective - Vital Signs Vital signs: Vital Signs Temp 98.0 F 03/20/21 02:00 Pulse 82 03/20/21 02:00 Resp 16 03/20/21 02:00 BP 95/56 03/20/21 02:00 Pulse Ox 92 L 03/20/21 02:00 Intake & Output 03/19/21 03/20/21 03/20/21 18:59 06:59 18:59 Weight 86.5 kg Other: Voiding Method Toilet Toilet # Voids 0 1 on examination awake alert but disoriented and confused. HEENT exam no JVP neck neck is supple no facial asymmetry Lungs clear to auscultation good air entry bilaterally Heart sounds unremarkable for any murmur rub gallop Abdomen soft nontender Extremity exam reveals no edema Neurologically awake alert but disoriented no asterixis. - Labs CBC & Chem 7: 03/18/21 16:09 03/18/21 16:09 Assessment and Plan Assessment: impression 1. ESRD on dialysis is a 39 2. Confusion and delirium possibly med related. Workup negative so far. No improvement so far. 3. Blood pressure is controlled at target. 4. Anemia, hemoglobin is about target 12.5. 5. Calcium is 9.2 phosphorus not available magnesium 2.2. Recommendation. 1. Continue dialysis schedule. 2. We will monitor labs ensure while signs are stable on dialysis. It 3. We'll ensure he is adequately dialyzed
--- NOTE | 2021-03-20 13:57 | P.PN ---
Subjective Progress Note Date: 03/20/21 No acute changes. Pts family working with SW to plan safe discharge. Objective - Vital Signs Vital signs: Vital Signs Temp 98 F 03/20/21 08:00 Pulse 95 03/20/21 08:00 Resp 16 03/20/21 08:00 BP 118/69 03/20/21 08:00 Pulse Ox 96 03/20/21 08:00 Intake & Output 03/19/21 03/20/21 03/20/21 18:59 06:59 18:59 Intake Total 236 Balance 236 Weight 86.5 kg Intake: Oral 236 Other: Voiding Method Toilet Toilet # Voids 0 1 - Exam Gen: awake, confused HEENT: normocephalic, atraumatic, good hearing acuity, moist mucous membranes Resp: good air exchange, breathing comfortably with no accessory muscle use CVS: good distal perfusion x 4, GI: soft, NTTP, ND : no SPT, no CVAT, suarez catheter not present MSK: no pitting edema, no clubbing Neuro: non-focal, moving all extremities - Labs CBC & Chem 7: 03/18/21 16:09 03/18/21 16:09 Assessment and Plan Assessment: Progressive increase in confusion with suspected dementia with behavioral change s From reviewing medical records 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, this usually associated with synucleinopathies (neurodegenerative disease) which commonly progresses to dementia with lewy bodies, Parkinson disease, or Alzheimer over the years -consider OP neurology referral for neurodegenerative disease -Trazodone 50mg qHS -Fall precautions -social work coordinator evaluation for possible placement -PT eval for possible placement History of PTSD Prazosin 2 mg QHS was started ESRD on hemodialysis consult nephrology renal diet follow HD schedule TTS hypertension , uncontrolled resume hydralazine Anemia of chronic disease, with macrocytosis monitor Hgb Infrarenal aortic aneurysm 6 X5.6 cm vascular surgery consult full code heparin sc tid for DVT PPX anticipated discharge to Home; SS/Case Management input
[2021-03-20] MEDS: PRAZOSIN 1 MG CAP PO SCH (20:26)
[2021-03-20] MEDS: QUEtiapine 25 MG TAB PO SCH (20:29)
[2021-03-20 21:43] LABS: Glucose,Whole Blood 79 mg/dL (75-99)
[2021-03-21] MEDS: HEPARIN SODIUM,PORCINE/PF 5,000 UNIT/0.5 ML SYRINGE SQ SCH ×4 (00:08→23:24)
[2021-03-21 07:07] LABS: Glucose,Whole Blood 78 mg/dL (75-99)
[2021-03-21] MEDS: lisinopriL 10 MG TAB PO SCH (07:25)
[2021-03-21] MEDS: hydrALAZINE HCL 25 MG TAB PO SCH ×3 (07:25→21:33)
--- NOTE | 2021-03-21 09:00 | P.PN ---
Subjective Progress Note Date: 03/21/21 Principal diagnosis: this 76-year-old male with ESRD on dialysis Monday. He was admitted with confusion and delirium. Currently on dialysis this morning on the time of this exam and continues to be somewhat confused.he has been worked up for his confusion computed tomography scan is normal labs are satisfactory. According to nursing staff he is eating fairly well. No nausea vomiting. He is afebrile while signs are stable. He remains confused and rambling sometimes and has been diagnosed to have PTSD Objective - Vital Signs Vital signs: Vital Signs Temp 98.0 F 03/21/21 07:39 Pulse 80 03/21/21 07:39 Resp 19 03/21/21 07:39 BP 168/88 03/21/21 07:39 Pulse Ox 90 L 03/21/21 07:39 Intake & Output 03/20/21 03/21/21 03/21/21 18:59 06:59 18:59 Intake Total 236 Output Total 250 Balance -14 Weight 86 kg Intake: Oral 236 Output: Hemodialysis 250 Other: Voiding Method Toilet Toilet # Voids 1 0 Reexamine is awake alert but seems to be incoherent. Is cooperative. HEENT exam no JVP neck is supple no facial asymmetry Lungs are clear to auscultation good air entry bilaterally Heart sounds unremarkable for any murmur rub gallop Abdomen soft nontender Extremity exam was no edema Neurologically awake alert but incoherent moves all his limbs - Labs CBC & Chem 7: 03/18/21 16:09 03/18/21 16:09 Assessment and Plan Assessment: impression 1. ESRD on dialysis Monday 2. Confusion and delirium, PTSD and possibly med related. Workup negative so far. No improvement so far. Adequately dialyzed 3. Blood pressure is controlled at target. At times is labile 4. Anemia, hemoglobin is about target 12.5. 5. Calcium is 9.2 phosphorus not available magnesium 2.2. Recommendation. 1. Continue dialysis schedule. 2. Watch blood pressure is labile.
--- NOTE | 2021-03-21 10:38 | P.PN ---
Subjective Progress Note Date: 03/21/21 No acute changes. Pts family working with SW to plan safe discharge. Objective - Vital Signs Vital signs: Vital Signs Temp 98.0 F 03/21/21 07:39 Pulse 80 03/21/21 07:39 Resp 19 03/21/21 07:39 BP 168/88 03/21/21 07:39 Pulse Ox 90 L 03/21/21 07:39 Intake & Output 03/20/21 03/21/21 03/21/21 18:59 06:59 18:59 Intake Total 236 Output Total 250 Balance -14 Weight 86 kg Intake: Oral 236 Output: Hemodialysis 250 Other: Voiding Method Toilet Toilet # Voids 1 0 - Exam Gen: awake, confused Resp: good air exchange, breathing comfortably with no accessory muscle use : suarez catheter not present Neuro: non-focal, moving all extremities - Labs CBC & Chem 7: 03/18/21 16:09 03/18/21 16:09 Assessment and Plan Assessment: Progressive increase in confusion with suspected dementia with behavioral changes From reviewing medical records 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, this usually associated with synucleinopathies (neurodegenerative disease) which commonly progresses to dementia with lewy bodies, Parkinson disease, or Alzheimer over the years -consider OP neurology referral for neurodegenerative disease -Trazodone 50mg qHS -Fall precautions -executive secretary social welfare evaluation for possible placement -PT eval for possible placement History of PTSD Prazosin 2 mg QHS was started ESRD on hemodialysis consult nephrology renal diet follow HD schedule TTS hypertension , uncontrolled resume hydralazine Anemia of chronic disease, with macrocytosis monitor Hgb Infrarenal aortic aneurysm 6 X5.6 cm vascular surgery consult full code heparin sc tid for DVT PPX anticipated discharge to Home; SS/Case Management input
[2021-03-21 11:42] LABS: Glucose,Whole Blood 71 mg/dL (75-99)
[2021-03-21 14:43] VITALS: RESP 18
[2021-03-21 16:32] LABS: Glucose,Whole Blood 82 mg/dL (75-99)
[2021-03-21 20:30] LABS: Glucose,Whole Blood 63 mg/dL (75-99)
[2021-03-21 20:51] LABS: Glucose,Whole Blood 69 mg/dL (75-99)
[2021-03-21 21:15] LABS: Glucose,Whole Blood 75 mg/dL (75-99)
[2021-03-21] MEDS: PRAZOSIN 1 MG CAP PO SCH (21:33)
[2021-03-21] MEDS: QUEtiapine 25 MG TAB PO SCH (21:33)
[2021-03-21 23:53] LABS: Glucose,Whole Blood 92 mg/dL (75-99)
[2021-03-22 06:45] LABS: Glucose,Whole Blood 75 mg/dL (75-99)
[2021-03-22] MEDS: hydrALAZINE HCL 25 MG TAB PO SCH ×2 (08:13→15:12)
[2021-03-22] MEDS: lisinopriL 10 MG TAB PO SCH (08:13)
[2021-03-22] MEDS: HEPARIN SODIUM,PORCINE/PF 5,000 UNIT/0.5 ML SYRINGE SQ SCH ×2 (08:13→15:12)
--- NOTE | 2021-03-22 10:32 | P.PN ---
Subjective Patient is seen in follow-up for end-stage renal disease. He is maintained on hemodialysis on Monday schedule. Patient is not a reliable historian. Blood pressure is stable. No edema. Vital signs are stable. General: The patient appeared well nourished and normally developed. HEENT: Head exam is unremarkable. LUNGS: Breath sounds decreased. HEART: Rate and Rhythm are regular. ABDOMEN: Soft, no distention. EXTREMITITES: No edema. Objective - Vital Signs Vital signs: Vital Signs Temp 97.9 F 03/22/21 07:34 Pulse 79 03/22/21 07:34 Resp 18 03/22/21 07:34 BP 141/70 03/22/21 07:34 Pulse Ox 91 L 03/22/21 07:34 Intake & Output 03/21/21 03/22/21 03/22/21 18:59 06:59 18:59 Intake Total 236 Balance 236 Weight 84.5 kg Intake: Oral 236 Other: # Voids 0 0 - Labs CBC & Chem 7: 03/18/21 16:09 03/18/21 16:09 Labs: Abnormal Lab Results - Last 24 Hours (Table) 03/21/21 03/21/21 03/21/21 Range/Units 11:40 20:26 20:50 POC Glucose (mg/dL) 71 L 63 L 69 L (75-99) mg/dL Assessment and Plan Plan: Assessment: 1. End-stage renal disease maintained on hemodialysis on Monday schedule. 2. Encephalopathy. Possibly delirium. Also dementia and history of PTSD. 3. Hypertension with chronic kidney disease. Blood pressure somewhat labile. Monitor. Plan: Hemodialysis tomorrow. Check phosphorus level.
[2021-03-22 11:33] LABS: Glucose,Whole Blood 113 mg/dL (75-99)
--- NOTE | 2021-03-22 13:18 | P.PN ---
Subjective Progress Note Date: 03/22/21 No acute changes. Pts family working with SW to plan safe discharge. Objective - Vital Signs Vital signs: Vital Signs Temp 97.9 F 03/22/21 07:34 Pulse 79 03/22/21 07:34 Resp 18 03/22/21 07:34 BP 141/70 03/22/21 07:34 Pulse Ox 91 L 03/22/21 07:34 Intake & Output 03/21/21 03/22/21 03/22/21 18:59 06:59 18:59 Intake Total 236 Balance 236 Weight 84.5 kg Intake: Oral 236 Other: # Voids 0 0 - Exam Gen: awake, confused Resp: good air exchange, breathing comfortably with no accessory muscle use : suarez catheter not present Neuro: non-focal, moving all extremities - Labs CBC & Chem 7: 03/18/21 16:09 03/18/21 16:09 Labs: Abnormal Lab Results - Last 24 Hours (Table) 03/21/21 03/21/21 03/22/21 Range/Units 20:26 20:50 11:31 POC Glucose (mg/dL) 63 L 69 L 113 H (75-99) mg/dL Assessment and Plan Assessment: Progressive increase in confusion with suspected dementia with behavioral changes From reviewing medical records 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, this usually associated with synucleinopathies (neurodegenerative disease) which commonly progresses to dementia with lewy bodies, Parkinson disease, or Alzheimer over the years -consider OP neurology referral for neurodegenerative disease -Trazodone 50mg qHS -Fall precautions -social welfare research worker evaluation for possible placement -PT eval for possible placement History of PTSD Prazosin 2 mg QHS was started ESRD on hemodialysis consult nephrology renal diet follow HD schedule TTS hypertension , uncontrolled resume hydralazine Anemia of chronic disease, with macrocytosis monitor Hgb Infrarenal aortic aneurysm 6 X5.6 cm vascular surgery consult full code heparin sc tid for DVT PPX anticipated discharge to Home; SS/Case Management input
[2021-03-22 14:44] VITALS: BMI 25.2
--- NOTE | 2021-03-22 14:52 | P.DS ---
Providers Date of admission: 03/15/21 19:15 Expected date of discharge: 03/22/21 Attending physician: Gloria Child DO Consults: 03/15/21 21:51 Consult Physician Routine Consulting Provider: Anoop Ferris Consult Reason/Comments: infra renal aneurysm Do you want consulting provider notified?: Yes Consult Physician Routine Consulting Provider: Caroline Nath Consult Reason/Comments: HD TTS Do you want consulting provider notified?: Yes 03/16/21 10:50 Consult Physician Routine Consulting Provider: Karl Kevin Consult Reason/Comments: Infra renal aneurysm 6 x 5.6cm. [place] already spoke with Dorita. Do you want consulting provider notified?: Already Contacted 03/17/21 15:00 Consult Physician Routine Consulting Provider: Piero Rivera Consult Reason/Comments: new confusion Do you want consulting provider notified?: Yes Primary care physician: Gloria Child DO Hospital Course: Progressive increase in confusion with suspected dementia with behavioral changes History of PTSD Patient presented to our facility with progressively worsening confusion and behavioral changes consistent with dementia. Pt was noted to have PTSD and insomnia, and was started on prazosin, trazodone, and seroquel. His mental status improved slightly, but overall remained stable. Pt is talkative, but cooperative with staff and providers. Discussed care with son over the phone, and ultimately patient will move to [place] where he will receive 24/7 supervision with his family, but in the interrim, will move back with his and receive home care services. Son is working on durable power of attorney law clerk paperwork. Prazosin 2 mg QHS was started ESRD on hemodialysis Hypertension , uncontrolled Consulted nephrology who provided patient with his routine TThSa iHD. During course of hospitalization, several medications were added for BP - such as jones nopril, midodrine. Patient's home hydralaine was resumed. Infrarenal aortic aneurysm 6 X5.6 cm Vascular surgery consulted for aneursym. They recommended following this in outpatient setting for possible intervention if amenable by family. However, after I discussed this with the son, he informed me that they likely would not pursue any further treatment at this time given patient's overall condition. If they were to change their mind at a later point, patient would need to be evaluated by vascular surgery in [place] upon moving there, or in [place] if family chooses to keep him here. I spent 45 minutes coordinating this complex discharge. Assessment: Gen: awake, confused Resp: good air exchange, breathing comfortably with no accessory muscle use : suarez catheter not present Neuro: non-focal, moving all extremities Patient Condition at Discharge: Good Plan - Discharge Summary Discharge Rx Participant: No New Discharge Prescriptions: New traZODone HCL [Desyrel] 50 mg PO HS #30 tab Prazosin [Minipress] 2 mg PO HS #60 cap Midodrine [ProAmatine] 5 mg PO AC-TID #90 tab QUEtiapine [SEROquel] 25 mg PO HS #30 tab lisinopriL [Zestril] 10 mg PO DAILY #30 tab Continue hydrALAZINE HCL 25 mg PO TID Renaplex-D Tablet 1 tab PO DAILY Discharge Medication List Renaplex-D Tablet 1 tab PO DAILY 03/15/21 [History] hydrALAZINE HCL 25 mg PO TID 03/15/21 [History] Midodrine [ProAmatine] 5 mg PO AC-TID #90 tab 03/22/21 [Rx] Prazosin [Minipress] 2 mg PO HS #60 cap 03/22/21 [Rx] QUEtiapine [SEROquel] 25 mg PO HS #30 tab 03/22/21 [Rx] lisinopriL [Zestril] 10 mg PO DAILY #30 tab 03/22/21 [Rx] traZODone HCL [Desyrel] 50 mg PO HS #30 tab 03/22/21 [Rx] Follow up Appointment(s)/Referral(s): Karl Kevin DO [STAFF PHYSICIAN] - As Needed Discharge Disposition: HOME WITH HOME HEALTH SERVICES
--- NOTE | 2021-03-22 14:58 | CDI ---
Documentation Clarification Form Date: 03/22/2021 02:49:41 PM From: Nadia Haji CCS, CCDS Admit Date: 03/15/2021 07:15:00 PM Patient Name: Gonzales Smith Visit Number: [id number] Discharge Date: ATTENTION: The Clinical Documentation Specialists (CDI) and [facility] Coding Staff appreciate your assistance in clarifying documentation. Please respond to the clarification below the line at the bottom and electronically sign. The CDI & [facility] Coding staff will review the response and follow-up if needed. Please note: Queries are made part of the Legal Health Record. If you have any questions, please contact the author of this message via ITS. Dr. Selvin Ortiz: Encephalopathy is documented in the 03/22 Nephrology Progress Note without further specificity. Additional clarification regarding the type of encephalopathy is requested. History/Risk Factors per the 03/15 History & Physical: PR, Coronary Stents, ESRD on Hemodialysis, Hypothyroidism, Former smoker. Clinical Indicators: Presented to [facility] as a transfer from [place] for Hemodialysis with increased confusion and wandering around his neighborhood. Unable to provide history due to his confusion. 03/15 VS: T 98.4, P 70, R 17, BP 190/90 - 155/73, PO 97 RA - 90 RA, BMI: 25.3 03/15 LAB: WBC 3.56, RBC 3.30, Hgb 10.7, Hct 33.9, Pl Ct 138, Lymph 0.73, Anion gap 12.20, BUN 50.0, Cr 4.4, GFR 12.3, Glucose 111, Albumin/Globulin ratio 1.31. 03/16 CXR: May be some early volume overload. Treatment 03/15: po Apresoline, po Minipress, po Klonopin, Heparin sq 03/17: po Desyrel 03/18: po Zestril, po Seroquel 25 mg x2. 03/19: po Seroquel Please clarify the type of encephalopathy, if known: [ ] Metabolic Encephalopathy [ ] Toxic Encephalopathy [ ] Hypertensive Encephalopathy [ ] Other, please specify [ ] Unable to determine (Template Last Revised: August 2020) unable to determine MTDD
[2021-03-22 15:03] VITALS: BP 88/55; PULSE 88; TEMP 97.5
[2021-03-22] MEDS ORDERED: MIDODRINE 5 MG TAB PO SCH (17:30)
== END 2021-03-22 17:08 | disposition home health service (06) | DRG 884 ==
LOC: 4SSUR 19:15
PROVIDERS: ADMIT Internal Medicine; ATTEND Internal Medicine
PROC: 5A1D70Z Performance of Urinary Filtration, Intermittent, Less than 6 Hours Per Day (ICD-10-PCS; principal; 2021-03-15)
DX: F03.91 Unspecified dementia, unspecified severity, with behavioral disturbance (principal); N18.6 End stage renal disease; F05 Delirium due to known physiological condition; G93.40 Encephalopathy, unspecified; I12.0 Hypertensive chronic kidney disease with stage 5 chronic kidney disease or end stage renal disease; J90 Pleural effusion, not elsewhere classified; Z91.83 Wandering in diseases classified elsewhere; D75.89 Other specified diseases of blood and blood-forming organs; E03.9 Hypothyroidism, unspecified; E83.9 Disorder of mineral metabolism, unspecified; E87.6 Hypokalemia; F43.10 Post-traumatic stress disorder, unspecified; G47.00 Insomnia, unspecified; G47.52 REM sleep behavior disorder; I25.2 Old myocardial infarction; D63.1 Anemia in chronic kidney disease; I25.10 Atherosclerotic heart disease of native coronary artery without angina pectoris; I72.2 Aneurysm of renal artery; Z99.2 Dependence on renal dialysis; I95.1 Orthostatic hypotension; Z20.822 Contact with and (suspected) exposure to COVID-19; Z79.899 Other long term (current) drug therapy; Z87.891 Personal history of nicotine dependence; Z95.5 Presence of coronary angioplasty implant and graft; Z53.29 Procedure and treatment not carried out because of patient's decision for other reasons
CPT/HCPCS: 71045; 80048; 80053; 80074; 83735; 84100; 85025; 85610; 90935; 94760